=== PATIENT | male | born 1985 | race Caucasian/White ===

== ENCOUNTER 2021-02-11 10:36 | Outpatient (CLI) | payer BC, SELFPAY ==
[2021-02-11 11:06] LABS: Hemoglobin A1C 5.7 % (<5.7)
[2021-02-11 11:24] LABS: Alanine Aminotransferase 77 U/L (16-63); Alkaline Phosphatase 63 U/L (46-116); Anion Gap 9 mmol/L (8-16); Aspartate Amino Transferase 29 U/L (15-37); Bilirubin,Total 0.8 mg/dL (0.00-1.00); Blood Urea Nitrogen 13 mg/dL (7-18); Carbon Dioxide 27 mmol/L (21-32); Chloride 105 mmol/L (98-108); Cholesterol 220 mg/dL (0-200); Estimated Glomerular Filt Rate > 60; Glucose 105 mg/dL (70-99); HDL Direct 38 mg/dL (40-60); LDL Cholesterol Calculated 161 mg/dL (<130); Osmolality Calculated 292 mOsm/kg (285-295); Potassium 4.3 mmol/L (3.5-5.1); Sodium 141 mmol/L (136-145); Total Protein 7.4 g/dL (6.4-8.2); Triglycerides 105 mg/dL (0-150)
== END 2021-02-11 10:37 | disposition home or self-care (01) ==
LOC: CHSLAB 10:41
PROVIDERS: PCP Physician Assistant; Visit Provider Physician Assistant
DX: R81 Glycosuria (principal)
CPT/HCPCS: 36415; 80053; 80061; 83036

== ENCOUNTER 2022-08-29 12:44 | Emergency (ER) | payer BC, SELFPAY ==
[2022-08-29] VITALS (8 sets, daily range): BP systolic 124–152; BP diastolic 92–95; PULSE 64–88; RESP 11–22; TEMP 36.7; O2SAT 98–100
--- NOTE | ~2022-08-29 | XR_ITS ---
EXAMINATION: XR chest 2V DATE: 08/29/2022 13:06 INDICATION: Left-sided chest pain TECHNIQUE: PA and lateral views of the chest are obtained. COMPARISON: None available FINDINGS: The lungs are free of acute opacities. No pleural effusion or pneumothorax. The cardiomedia stinal silhouette is normal. The visualized bones and soft tissues are unremarkable. IMPRESSION: 1. No acute cardiopulmonary abnormality. Reviewed, dictated and finalized at location L. ICAL REGISTERED NURSE
--- NOTE | 2022-08-29 12:48 | ED.CHESTPAIN ---
HPI - Chest Pain General Chief Complaint: Chest Pain Stated Complaint: Chest pain Time Seen by Provider: 08/29/22 12:48 Source: patient and RN notes reviewed Mode of arrival: ambulatory Limitations: no limitations History of Present Illness HPI narrative: patient states he had at episode of sharp stabbing chest pain last evening. 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 Describes as aching pain is a 1 in the sharp stabbing pain as a 6/10. He said when the sharp stabbing pain he hits him it kind of takes a breath away but is not constantly short of breath. He denies any nausea vomiting. Denies any diaphoresis today. MD complaint: chest discomfort Timing of current episode: constant Onset: during rest Pain location: left chest Pain radiation: none Severity: mild Quality: aching Relieving factors: nothing Exacerbating factors: nothing Associated symptoms: dyspnea Treatment prior to arrival: none Risk Factors Coronary artery disease risk factors: none Related Data Home Medications Medication Instructions Recorded Confirmed No Home Medications 08/29/22 08/29/22 Allergies Allergy/AdvReac Type Severity Reaction Status Date / Time ibuprofen Allergy Hives Verified 08/29/22 13:01 Review of Systems Review of Systems: All systems reviewed & are unremarkable except as noted in HPI and below PMFSH Past Medical History Medical History (Updated 08/29/22 @ 13:49 by Chuy Boucher MD) No active medical problems Social History Social History (Updated 08/29/22 @ 13:15 by Chuy Boucher MD) Smoking status: Current some day smoker Tobacco type: cigars and smokeless tobacco Exam Const: General: healthy appearing, no acute distress and alert Nutritional Appearance: well nourished Orientation/consciousness: patient oriented x3 Limitations: no limitations HENMT: Head: normal to inspection Ears: external ears normal Face/Nose/Sinus: Normal external nose present Face and sinus: normal facial exam Mouth: Yes moist mucous membranes Eyes: Conjunctivae: conjunctivae normal Pupils: Equal, round and reactive pupils present EOM: EOMs intact bilaterally Neck: Neck: normal visual inspection Chest: Chest palpation & inspection: normal inspection of the chest and no tenderness Resp: Effort & Inspection: normal respiratory effort Auscultation: clear to auscultation bilaterally Cardio: Rate: regular rate Rhythm: regular rhythm GI: GI Palp: Yes Soft to palpation and No Tenderness to palpation present (GI) Auscultation: normal bowel sounds Back/Spine/Pelvis: Cervical Spine: cervical ROM normal Thoracic/Lumbar Spine: thoraco-lumbar ROM normal Skin: General skin exam: normal color Rashes: no rashes Neuro: General: patient oriented x3, moves all extremities, no focal motor deficits and CN's II-XI intact bilaterally Speech: normal speech Gait exam (Neuro): Normal gait present Extrem: General: normal to inspection and no clubbing, cyanosis or edema Psych: Mental Status: mental status grossly normal Affect: normal affect Attitude: cooperative Course Vital Signs Vital signs: Vital Signs Temperature 36.7 C 08/29/22 12:45 Pulse Rate 88 08/29/22 12:45 Respiratory Rate 18 08/29/22 12:45 Blood Pressure 152/93 H 08/29/22 12:45 Pulse Oximetry 100 08/29/22 12:45 Oxygen Delivery Room Air 08/29/22 12:45 Temperature 36.7 C 08/29/22 12:45 Pulse Rate 64 08/29/22 13:45 Respiratory Rate 22 H 08/29/22 13:45 Blood Pressure 126/92 H 08/29/22 13:31 Pulse Oximetry 98 08/29/22 13:45 Oxygen Delivery Room Air 08/29/22 12:45 MDM - Chest Pain Differential Diagnosis Differential diagnosis: Likely pneumothorax, stable angina, unstable angina pectoris, atypical chest pain, st elevation myocardial infarction, costochondritis and chest pain Lab Data Attestation: I
--- NOTE | 2022-08-29 12:52 | ECG_ITS ---
Measurements Intervals [place] Rate: 81 P: 62 [place]: 169 QRS: 72 QRSD: 86 T: 48 QT: 394 QTc: 458 Interpretive Statements SINUS RHYTHM NORMAL ECG NO PREVIOUS ECG AVAILABLE FOR COMPARISON Electronically Signed On 08-29-2022 13:08:21 [employer] by Buzz Packer D.O.
[2022-08-29] MEDS: ASPIRIN 81 MG CHEWABLE TABLET 324 MG PO (13:00)
[2022-08-29 13:13] LABS: Basophils Absolute Auto 0.05 K/mm3 (0.00-0.10); Basophils Percent Auto 0.6 % (0.0-1.0); Eosinophils Absolute Auto 0.27 K/mm3 (0.02-0.50); Eosinophils Percent Auto 3.3 % (1.0-6.0); Hematocrit 43.5 % (40.0-54.0); Hemoglobin 14.7 g/dL (14.0-18.0); Immature Granulocyte Absolute 0.02 K/mm3 (0.00-0.00); Immature Granulocyte Percent A 0.2 % (0.0-0.0); Lymphocytes Absolute Auto 3.32 K/mm3 (1.10-4.50); Lymphocytes Percent Auto 40.2 % (18.0-42.0); Mean Corpuscular HGB Conc 33.8 g/dL (32.0-36.0); Mean Corpuscular Hemoglobin 28.8 pg (27.0-31.0); Mean Corpuscular Volume 85.1 fL (78.0-102.0); Mean Platelet Volume 11.3 fl (8.7-11.0); Monocytes Absolute Auto 0.65 K/mm3 (0.10-0.90); Monocytes Percent Auto 7.9 % (2.0-11.0); Neutrophils Absolute Auto 3.9 K/mm3 (1.7-7.2); Neutrophils Percent Auto 47.8 % (50.0-70.0); Platelet Count Result 244 K/mm3 (150-420); Red Blood Count 5.11 M/mm3 (4.70-6.10); Red Cell Distribution Width 13.1 % (11.6-14.4); White Blood Count 8.3 K/mm3 (4.8-10.8)
[2022-08-29 13:30] LABS: Partial Thromboplastin Time 27.1 SEC (23.90-30.70); Prothrombin Time 11.3 Seconds (9.50-12.10)
[2022-08-29 13:33] LABS: Troponin I 5.9 ng/L (0.00-60.4)
[2022-08-29 13:34] LABS: Alanine Aminotransferase 41 U/L (16-63); Alkaline Phosphatase 63 U/L (46-116); Anion Gap 8 mmol/L (8-16); Aspartate Amino Transferase 15 U/L (15-37); Bilirubin,Total 0.7 mg/dL (0.00-1.00); Blood Urea Nitrogen 11 mg/dL (7-18); Calcium 8.8 mg/dL (8.5-10.1); Carbon Dioxide 30 mmol/L (21-32); Chloride 103 mmol/L (98-108); Estimated CRCL calculation 88 ml/min; Estimated Glomerular Filt Rate > 60; Glucose 108 mg/dL (70-99); Osmolality Calculated 292 mOsm/kg (285-295); Potassium 3.8 mmol/L (3.5-5.1); Sodium 141 mmol/L (136-145); Total Protein 7.7 g/dL (6.4-8.2)
--- NOTE | 2022-08-29 13:47 | PC.NURSE ---
PT IS LYING ON STRETCHER IN EXAM ROOM WITH AT BEDSIDE. VSS AT THIS TIME. NAD NOTED. WILL CONTINUE TO MONITOR. PT IS AWAITING RESULTS. PT DENIES ANY NEEDS OR COMPLAINTS.
== END 2022-08-29 13:55 | disposition home or self-care (01) ==
PROVIDERS: Emergency Provider Emergency Medicine; PCP Physician Assistant
DX: R07.89 Other chest pain (principal); F17.290 Nicotine dependence, other tobacco product, uncomplicated
CPT/HCPCS: 36415; 71046; 80053; 84484; 85025; 85610; 85730; 93005; 99284; A9270

== ENCOUNTER 2025-05-23 11:42 | Emergency (ER) | payer BC, SELFPAY ==
[2025-05-23 11:57] VITALS: BP 134/88; PULSE 76; RESP 16; TEMP 36.6; O2SAT 99
[2025-05-23] MEDS: TETRACAINE HCL 0.5% OPHTH SOLN 4 ML BTL 1 DROP (12:03)
[2025-05-23] MEDS: FLUORESCEIN SOD 1 MG/STRIP (12:03)
--- NOTE | 2025-05-23 12:10 | ED.EYEPROB ---
HPI - Eye Problem General Chief complaint: Eye Problems Stated complaint: left eye injury Time Seen by Provider: 05/23/25 11:54 History of Present Illness HPI Narrative: 39-year-old otherwise healthy male wearing contact lenses presenting with left eye pain and irritation for the last day. Patient denies any injury but states he may have scratched himself all driving. Does work contacts in exchange them. He wears monthly contact lenses and the last pair has been using 2 weeks but he was able to remove them and exchanged for new ones but still having pain. No vision loss. Vision at baseline, no headache, nausea, vomiting, fever, chills. Related Data Allergies Allergy/AdvReac Type Severity Reaction Status Date / Time ibuprofen Allergy Hives Verified 08/29/22 13:01 Review of Systems Review of Systems: As reviewed [facility] Past Medical History Medical History No active medical problems Social History Social History Smoking status: Current some day smoker Tobacco type: cigars and smokeless tobacco Exam Narrative: GENERAL: [Well-appearing, well-nourished, and in no acute distress.] HEAD: [Normocephalic, atraumatic.] EYES: Pupils are 3 mm and reactive bilaterally, extraocular movements are intact. Left eye conjunctival injection without any limbus involvement. No entrapment signs. Fluorescein dye shows no Jennifer sign. Semi circular corneal abrasion inferior to the iris on the left side. Pain relief with tetracaine. No foreign body in the eye or underneath either eyelid. ENT: Nares clear, no rhinorrhea or epistaxis. Mucous membranes moist. NECK: Supple. CHEST: [Clear to auscultation. No respiratory distress.] HEART: [Regular rate and rhythm]. No murmur heard. [Normal peripheral pulses.] ABDOMEN: [Soft, nondistended], [nontender], [No rigidity or guarding] EXTREMITIES: Normal range of motion. [No edema.] SKIN: Warm, dry, no rash. NEURO: [No focal deficits]. Alert and oriented [x3.] PSYCH: [Normal mood and affect.] Course Vital Signs Vital signs: Vital Signs Temperature 36.6 C 05/23/25 11:57 Pulse Rate 76 05/23/25 11:57 Respiratory Rate 16 05/23/25 11:57 Blood Pressure 134/88 05/23/25 11:57 Pulse Oximetry 99 05/23/25 11:57 Oxygen Delivery Room Air 05/23/25 11:57 Temperature 36.6 C 05/23/25 11:57 Pulse Rate 76 05/23/25 11:57 Respiratory Rate 16 05/23/25 11:57 Blood Pressure 134/88 05/23/25 11:57 Pulse Oximetry 99 05/23/25 11:57 Oxygen Delivery Room Air 05/23/25 11:57 MDM - Eye Problem MDM Narrative Medical decision making narrative: 39-year-old otherwise healthy male wearing contact lenses presenting with left eye pain and irritation for the last day. Patient denies any injury but states he may have scratched himself all driving. Does work contacts in exchange them. He wears monthly contact lenses and the last pair has been using 2 weeks but he was able to remove them and exchanged for new ones but still having pain. No vision loss. Vision at baseline, no headache, nausea, vomiting, fever, chills. Pupils are 3 mm and reactive bilaterally, extraocular movements are intact. Left eye conjunctival injection without any limbus involvement. No entrapment signs. Fluorescein dye shows no Jennifer sign. Semi circular corneal abrasion inferior to the iris on the left side. Pain relief with tetracaine. No foreign body in the eye or underneath either eyelid. Stable vital signs. Exam consistent with corneal abrasion. Will be discharged with moxifloxacin eyedrops and given 1st dose here. Told to take Tylenol and NSAIDs for pain control and has an ceramics instructor he can see in the next few days. Given return precautions and safely discharged. Medical Records Attestation: I reviewed the patient's medical records. Discharge Plan Discharge Clinical Impression: Corneal abrasion Patient Disposition: Home Condition: Stable Instructions: Antibiotic Form Additional Instructions: Take the prescribed eyedrops until completion. Follow-up with your ceramics instructor in the next 3-5 days of possible. Return with any vision changes, worsening pain, fevers, intractable headaches or any other issues. Tylenol and [id number] NSAIDs for pain control. Patient Language: Slovak Prescriptions: New moxifloxacin 0.5 % drops 1 drp EACH EYE TID 7 Days Qty: 3 0RF moxifloxacin 0.5 % drops 1 drp EACH EYE TID 7 Days Qty: 3 0RF Rx Instructions: 2 drops every 2 hours for 2 days THEN q6hrs for 5 days Follow-up/Referrals: Beverley,MARY LOU Yap [Primary Care Provider] Time of Disposition: 12:10
[2025-05-23] MEDS: MOXIFLOXACIN HCL 0.5% 3 ML OPHTH SOLN 1 DROP LEFT EYE (12:21)
== END 2025-05-23 12:26 | disposition home or self-care (01) ==
PROVIDERS: Emergency Provider Student in an Organized Health Care Education/Training Program; PCP Physician Assistant
DX: S05.02XA Injury of conjunctiva and corneal abrasion without foreign body, left eye, initial encounter (principal); F17.290 Nicotine dependence, other tobacco product, uncomplicated; X58.XXXA Exposure to other specified factors, initial encounter
CPT/HCPCS: 99283; A9270